=== PATIENT | female | born 2005 | race Caucasian/White ===

== ENCOUNTER 2023-06-20 13:00 | Emergency (ER) | payer MEDICAID, SELFPAY ==
[2023-06-20 12:31] VITALS: BP 147/67; PULSE 99; RESP 16; TEMP 36.8; O2SAT 97; BMI 30.9
--- NOTE | 2023-06-20 12:32 | ECG_ITS ---
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
[2023-06-20 13:13] LABS: Basophils Percent Auto 0.2 % (0.2-2.0); Eosinophils Absolute Auto 0.1 10^3/uL (0.0-0.7); Eosinophils Percent Auto 1.9 % (0.9-7.0); Hematocrit 35.3 % (36.0-48.0); Hemoglobin 11.4 g/dL (12.0-16.0); Immature Granulocytes Abs Auto 0.04 10^3/uL (0.00-0.03); Immature Granulocytes Pct Auto 0.8 % (0.0-0.5); Lymphocytes Absolute Auto 1.5 10^3/uL (1.2-3.8); Lymphocytes Percent Auto 29.3 % (20.5-60.0); Mean Corpuscular HGB Conc 32.3 g/dL (29.9-35.2); Mean Corpuscular Hemoglobin 29.5 pg (26.7-34.0); Mean Corpuscular Volume 91.2 fL (81.0-99.0); Monocytes Absolute Auto 0.6 10^3/uL (0.3-0.8); Monocytes Percent Auto 11.2 % (1.7-12.0); Neutrophils Absolute Auto 2.9 10^3/uL (1.4-6.5); Neutrophils Percent Auto 56.6 % (43.0-75.0); Platelet Count 221 10^3/uL (150-450); Red Blood Count 3.87 10^6/uL (4.20-5.40); White Blood Count 5.2 10^3/uL (4.0-11.0)
[2023-06-20 13:29] LABS: HCG Qualitative NEGATIVE (NEGATIVE)
[2023-06-20 13:34] LABS: Acetaminophen <2.0 ug/mL (10.0-30.0); Alanine Aminotransferase 10 U/L (14-59); Albumin Globulin Ratio 0.7; Albumin Level 2.9 g/dL (3.4-5.0); Alkaline Phosphatase 106 U/L (46-116); Anion Gap 11.5; Aspartate Amino Transferase 17 U/L (15-37); BUN Creatinine Ratio 15.7; Bilirubin Total 0.2 mg/dL (0.2-1.0); Calcium 8.5 mg/dL (8.5-10.1); Carbon Dioxide 28.9 mmol/L (21.0-32.0); Chloride 101 mmol/L (98-107); Estimated GFR (African America >60 (>=60); Estimated GFR (Non-African Ame >60 (>=60); Ethanol <3 mg/dL; Globulin 4.4 g/dL; Glucose 97 mg/dL (74-106); Potassium 4.4 mmol/L (3.5-5.1); Salicylate 3.1 mg/dL (<=19.9); Sodium 137 mmol/L (136-145); Total Protein 7.3 g/dL (6.4-8.2)
--- NOTE | 2023-06-20 14:07 | PC.NURSE ---
THIS RN SPOKE WITH JESUS FROM [facility] AT THIS TIME. COUNSELOR WILL CALL BACK TO SPEAK WITH PATIENT
[2023-06-20 14:48] LABS: Cannabinoid Screen Urine NEGATIVE (NEGATIVE); Cocaine Screen Urine NEGATIVE (NEGATIVE); Methamphetamines Screen Urine NEGATIVE (NEGATIVE); Opiate Screen Urine NEGATIVE (NEGATIVE); Phencyclidine Screen Urine NEGATIVE (NEGATIVE)
[2023-06-20 14:49] LABS: Amphetamine Screen Urine NEGATIVE (NEGATIVE); Barbiturates Screen Urine NEGATIVE (NEGATIVE); Benzodiazepines Screen Urine POSITIVE (NEGATIVE); Buprenorphine Screen Urine NEGATIVE (NEGATIVE); Methadone Screen Urine NEGATIVE (NEGATIVE); Oxycodone Screen Urine NEGATIVE (NEGATIVE); Tricyclic Antidepressant Urine POSITIVE (NEGATIVE)
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
== END 2023-06-20 15:44 | disposition home or self-care (01) ==
PROVIDERS: Emergency Provider Emergency Medicine
DX: R45.4 Irritability and anger (principal); F31.9 Bipolar disorder, unspecified; F20.9 Schizophrenia, unspecified
CPT/HCPCS: 36415; 80053; 80179; 80307; 80320; 80329; 84703; 85025; 93005; 99285